=== PATIENT | male | born 1970 | race Two or more races ===

== ENCOUNTER 2019-02-05 16:21 | Emergency (ER) | payer SELFPAY ==
--- NOTE | 2019-02-05 16:31 | ED Physician Chart ---
ED Chief Complaint/HPI - Patient Information Date Seen:: 02/05/19 Time Seen:: 16:30 Chief Complaint:: leg pains pt found on the streets History of Present Illness:: 42 yr old male from the streets homeless with agitation drug abuse etoh abuse ED Review of Systems - Review of Systems General/Constitutional: No fever Eyes: No loss of vision ENT: No earache Neck: No neck pain Pulmonary: No SOB GI: No vomiting G/U: No dysuria Musculoskeletal: Bone or joint pain Neurological: No syncope ED Past Medical History - Past Medical History Past Medical History: Other (multi substance abuse) ED Physical Exam - Physical Examination Head: Atraumatic Eyes: Lids, conjuctiva normal ENMT: External ears, nose nl Neck: Nontender Respiratory: Nl effort/Exclusion Cardio Vascular: RRR GI: No tenderness/rebounding/guarding Neuro/Psych: Alert/oriented ED Assessment - Assessment General Assessment: drug alcohol abuse homeless leg pains ED Septic Shock - . Is Septic Shock (SBP<90, OR Lactate>4 mmol\L) present?: No ED Reassessment (Disposition) - Reassessment Reassessment:: leg pain homeless - Diagnosis Diagnosis:: as above - Patient Disposition Discharge/Transfer:: Home Condition at Disposition:: Stable
== END 2019-02-05 18:10 | disposition left against medical advice (07) ==
LOC: EDBD 16:21 → ER 16:21
DX: M79.604 Pain in right leg (principal); M79.605 Pain in left leg; F10.10 Alcohol abuse, uncomplicated; F19.10 Other psychoactive substance abuse, uncomplicated; R45.1 Restlessness and agitation; Z59.0 Homelessness
CPT/HCPCS: Z7502